=== PATIENT | male | born 1985 ===

== ENCOUNTER 2025-03-21 08:35 | Outpatient (AMB) | payer BC, SELFPAY ==
[2025-03-21 08:42] VITALS: BP 114/92; PULSE 81; O2SAT 98; BMI 34.1
--- NOTE | 2025-03-21 08:42 | AM.OFFWIN_ITS ---
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 Contusion of right hand: - The patient sustained an injury to his right hand on Wednesday night after punching a door out of anger. - He reports pain that is exacerbated by extending his fingers, particularly around the ring finger area. - The patient notes that the associated swelling has decreased slightly since the incident. - He denies taking any medications. Medical History: - The patient has not seen a primary car e physician in a very long time. Medications: - The patient is not taking any medicati ons. Diagnostic Results: - Imaging: - Right hand x-ray: Negative for acute fracture. Problem List - Contusion of right hand Plan - An x-ray of the right hand was ordered and completed to rule out a fracture. - The x-ray revealed no fracture. - The patient was instructed to apply ic e for the swelling and manage the injury conservatively. - The patient is to follow up with a [facility] physician if discomfort persis ts after a week. 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: Alert awake oriented x3 motor intact Skin: Normal turgor Physical Exam Vital Signs: Last Vital Signs Pulse 81 03/21/25 08:42 BP 114/92 H 03/21/25 08:42 Pulse Ox 98 03/21/25 08:42 Oxygen Delivery Method Room Air 03/21/25 08:42 BMI result Body Mass Index 34.1 Assessment & Plan Assessment & Plan (1) Injury of hand, right: Code(s): S69.91XA - Unspecified injury of right wrist, hand and finger(s), initial encounter Qualifiers: Encounter type: initial encounter Qualified Code(s): S69.91XA - Unspecified injury of right wrist, hand and finger(s), initial encounter (2) Swelling of joint, hand, right: Code(s): M25.441 - Effusion, right hand (3) Excessive anger: Code(s): R45.4 - Irritability and anger Plan Contusion of right hand: - The patient sustained an injury to his right hand on Wednesday night after punching a door out of anger. - He reports pain that is exacerbated by extending his fingers, particularly around the ring finger area. - The patient notes that the associated swelling has decreased slightly since the incident. - He denies taking any medications. Medical History: - The patient has not seen a primary care physician in a very long time. Medications: - The patient is not taking any medications. Diagnostic Results: - Imaging: - Right hand x-ray: Negative for acute fracture. Problem List - Contusion of right hand Plan - An x-ray of the right hand was ordered and completed to rule out a fracture. - The x-ray revealed no fracture. - The patient was instructed to apply ice for the swelling and manage the injury conservatively. - The patient is to follow up with a primary care physician if discomfort persists after a week. Coding Level of Care Code Est Pt Level 4 (15418) Diagnoses Injury of right hand, initial encounter S69.91XA Encounter type: initial encounter Swelling of joint, hand, right M25.441 Excessive anger R45.4
--- OUTSIDE RECORDS SUMMARY | 2025-03-21 16:18 | XMS_ITS | Data Portability ---
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 Plan of Treatment Reminders Order Date Submit Date Provider Last Modified By Organization Details Last Modified Time Details Appointments None recorded. Lab rapid flu (A+B) 2022 023 [email or web address] [facility], [facility] [place], [address], 11:03:42 Referral None recorded. Procedures None recorded. Surgeries None recorded. Imaging None recorded. Medication Orders albuterol sulfate HFA 90 mcg/actuati on aerosol inhaler 2022 023 [facility]acy #[id number], [address] [facility] [place], [address], 3 11:03:47 benzonatate 100 mg capsule 2022 023 [facility] #[id number], [address] [facility] [place], [address], 3 11:03:47 Patient TargetsNo targets recorded. Patient Instructions Encounter Date Encounter Id Patient Instructions Last Modified By Organization Details Last Modified Time 05/15/2022 [id number] cough: care instructions [email or web address] Not available 05/15/2022 11:03:42 Reason for Referral None Reported. Results Created Date Observation Date Name Description Value Unit Range Abnormal Flag Note LastModifiedBy Organization Detail LastModifiedTime 05/15/19 23 05/15/2022 rapid flu (A+B) Unknown Analyte Normal = Negati ve Not Available 2099doretha martin [address], [address], 05/15/2022 10:37:56 05/15/19 23 05/15/2022 rapid flu (A+B) Unknown Analyte Normal = Negati ve Not Available 2099doretha martin [address], [address], 05/15/2022 10:37:56 05/15/19 23 05/15/2022 rapid flu (A+B) Unknown Analyte negati ve Not Available [facility] [address], [address], 05/15/2022 10:37:56 05/15/19 23 05/15/2022 rapid flu (A+B) Unknown Analyte negati ve Not Available 2099doretha martin [address], [address], 05/15/2022 10:37:56 Result Notes None recorded. Problems Name Problem SNOMED Code Status Onset Date Resolution Date Notes Provider Name and Address Organization Details Recorded Time Asthma [id number] Active 023 CAL morfin [place] - [facility] 05/15/2022 10:34:07 Problem Notes None recorded. Procedures Surgical History Date Name Laterality Status Provider Name and Address Organization Details Recorded Time repair of tendo achilles completed CAL WORLEY PA - [facility] 05/15/2022 10:35:15 Imaging Results None recorded. Procedure Notes None recorded. Medical Equipment None Reported. Allergies No known drug allergies Medications Name Sig Start Date Stop Date Status Note LastModified by Organization Details LastModified Time benzonatate 100 mg capsule Take 1 capsule 3 times a day by oral route for 10 days. 2022 active Not Available Not Available Not Avai lable erythromycin 5 mg/gram (0.5 %) eye ointment APPLY 1CM RIBBON INTO THE RIGHT EYE 3 TO 4 TIMES A DAY FOR 7 DAYS 05/15 completed Not Available Not Available Not Available albuterol sulfate HFA 90 mcg/actuatio n aerosol inhaler TAKE 2 PUFFS EVERY FOUR TO SIX HOURS NEEDED FOR COUGHING /WHEEZIN G active Not Available Not Available No t Available tobramycin 0.3 %-dexamethas one 0.1 % eye drops,suspen alfredo INSTILL 1 DROP INTO RIGHT EYE 4 TIMES A DAY FOR 7 DAYS 05/15 completed Not Available Not Available Not Available Vitals Date Recorded Body height Body mass index (BMI) Body weight Pain severity - 0-10 verbal numeric rating [Score] - Reported Oxygen saturation Oxygen saturation in Arterial blood by Pulse oximetry Heart rate Respiratory rate Body temperature Systolic And Diastolic Provider Name and Address Organization Details Last Updated DateTime 187.96 cm 32.1 kg/m2 342063. 09 g 7 96 % 96 % 89 /min 16 /min 98.7 [degF] 121/77 mm[Hg] CAL ATKINS [employer] [facility] 3 10:37:36 Social History Question Answer Notes LastModified by Jongla Details LastModified Time Tobacco Smoking Status Never Smoker [facility] [facility] 05/15/2022 10:34:40 Have You Recently Traveled Abroad? No Information not available 05/15/2022 Sex: Unknown Functional Status Question Answer Note LastModified by Jongla Details LastModified Time Do you use any illicit or recreational drugs? No Information not available 05/15/2022 Do you or have you ever used any other forms of tobacco or nicotine? No Information not available 05/15/2022 What is your level of alcohol consumption? Occasional Information not available 05/15/2022 Are you currently employed? Yes Information not available 05/15/2022 Mental Status None recorded. Family History Relationship Description Onset Age of this Age Resolved Age Notes LastModified by Organization Details LastModified Time Father No current problems or disability Not available 05/15 10:34:11 Mother No current problems or disability Not available 05/15 10:34:11 Notes:hypertension Medical History No medical history recorded. Past Encounters Encounter ID Performer Location Encounter Start Date Encounter Closed Date Diagnosis/Indication Diagnosis SNOMED-CT Code Diagnosis ICD10 Code Diagnosis IMO Codes Diagnosis Note [id number] [facility] [address] [place] [address] 02/25/2021 08:57:00 02/25/2021 11:56:36 [id number] Scott Posadas DO [facility] [address] [address] 05/15/2022 08:28:51 05/15/2022 11:08:43 Cough 63861582 R05.9 Viral infection likelyflu Neghome COVID negno s/sx of PNA/bronch itis Recommend plenty of fluidsTyle nol, Motrin for pain/fever Humidifier Nasal saline sprayRx albuterol prntessalo n perles No need for antibiotic may last up to 2 weeksDiscu ssed concerning red flags with patient and reasons to follow up in the Emergency Department urgently.C all or RTC if worsening cough, SOB, high fever, rash, n/v/d and unable to hydrate Health Concerns Section Related Observation LastModified by Organization Detai ls LastModified Time None Recorded Concern Status LastModified by Organization Details LastModified Time None Recorded Advance Directives Directive None Recorded Payers Insurance Date Sequence Insurance Name Policy Number Policy Chiu Covered Member ID Chiu Member ID Guarantor Name 05/15/2022 1 [employer] (PPO) [id number] Ghulam Moreland [id number] Ghulam Moreland 08/04/2022 1 CYNTHIA (PPO) [id number] Ghulam Moreland [id number] BT Ghulam Moreland Notes Date Note Type Note Provider Name and Address Organization Details Recorded Time 05/15/2022 text/html CoughReported by [id number] yo male c/o cough x 2 weeks+ congestionno f/c/n/vno SOBno wheezeno CPno sore throatno GROVER/dizzinessnon smokerno vapinghas 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
== END 2025-03-21 09:18 | disposition home or self-care (01) ==
PROVIDERS: PCP Internal Medicine; Visit Provider Internal Medicine
DX: S69.91XA Unspecified injury of right wrist, hand and finger(s), initial encounter (principal); M25.441 Effusion, right hand; R45.4 Irritability and anger

== ENCOUNTER 2025-03-21 08:35 | Outpatient (REF) | payer BC, SELFPAY ==
--- NOTE | ~2025-03-21 | XR_ITS ---
EXAMINATION: XR HAND 3 OR MORE VIEWS RIGHT HISTORY: S69.91XA - Unspecified injury of right wrist, hand and finger(s), initial... COMPARISON: There are no prior studies available for comparison. FINDINGS: Three views of the right hand are submitted. Osseous mineralization is normal. There is no fracture or dislocation. 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 The soft tissues are unremarkable. XR/XR hand RT min 3V IMPRESSION: No evidence of fracture of the right hand. Electronically signed by: Fabian Pat MD 03/21/2025 09:06 AM LUCIO
== END 2025-03-21 08:36 | disposition home or self-care (01) ==
LOC: HO.HMGCX 08:35
PROVIDERS: PCP Internal Medicine
DX: S69.91XA Unspecified injury of right wrist, hand and finger(s), initial encounter (principal); M25.441 Effusion, right hand; R45.4 Irritability and anger; W22.09XA Striking against other stationary object, initial encounter
CPT/HCPCS: 73130

== ENCOUNTER → 2025-03-21 08:55 | Outpatient (BNV) | payer BC, SELFPAY | PROVIDERS: PCP Internal Medicine; Visit Provider Radiology Diagnostic Radiology | DX: S69.91XA Unspecified injury of right wrist, hand and finger(s), initial encounter (principal) | CPT/HCPCS: 73130 ==